=== PATIENT | female | born 1950 | race Hispanic/Latino ===

== ENCOUNTER → 2021-10-16 | Outpatient (CLI) | payer MEDICARE | LOC: DX 11:35 | PROVIDERS: ATTEND Internal Medicine | DX: Z12.31 Encounter for screening mammogram for malignant neoplasm of breast (principal); Z13.820 Encounter for screening for osteoporosis | CPT/HCPCS: 77067; 77080 ==

== ENCOUNTER → 2023-03-06 | Outpatient (CLI) | payer MEDICARE | LOC: MAMMO 11:30 | PROVIDERS: ATTEND Internal Medicine | DX: Z12.31 Encounter for screening mammogram for malignant neoplasm of breast (principal) | CPT/HCPCS: 77067 ==

== ENCOUNTER → 2025-04-20 | Outpatient (REF) | payer MEDICARE | LOC: US 09:27 | PROVIDERS: ATTEND Internal Medicine | DX: R19.03 Right lower quadrant abdominal swelling, mass and lump (principal) | CPT/HCPCS: 76705 ==

== ENCOUNTER → 2025-06-04 | Outpatient (REF) | payer MEDICARE | LOC: MAMMO 09:28 | PROVIDERS: ATTEND Internal Medicine | DX: Z12.31 Encounter for screening mammogram for malignant neoplasm of breast (principal) | CPT/HCPCS: 77067 ==

== ENCOUNTER → 2025-06-18 | Outpatient (REF) | payer MEDICARE ==
[~2025-06-18] MED LIST: IOPAMIDOL 370 MG/ML 100 ML INFUS..BTL INJ ONE
[2025-06-18 15:11] LABS: EST GLOMERULAR FILTRATION RATE 64.0 ML/MIN (>=60)
== END ==
LOC: CT 13:46
PROVIDERS: ATTEND Surgery
DX: R19.03 Right lower quadrant abdominal swelling, mass and lump (principal)
CPT/HCPCS: 36415; 74177; 82565; 84520; Q9967